=== PATIENT | male | born 1950 | race Caucasian/White ===

== ENCOUNTER 2017-01-22 12:22 | Emergency (ER) | payer MEDICARE ==
--- NOTE | 2017-01-29 13:52 | ER ---
ADMIT: 01/22/2017 RM/LOC: ER [facility] MR#: [id number] [facility] [id number] [place] [address] Emergency Room Report SEX: M AGE: 66 : 1950 DATE: 01/22/2017 ADDENDUM: CHIEF COMPLAINT: G-tube fell out. HISTORY OF PRESENT ILLNESS: This is a 66-year-old, who has a history of [employer]'s, he has a G-tube in place because he cannot swallow. G-tube is replaced here in emergency room, it was confirmed with fluoroscopy. CLINICAL IMPRESSION: G-tube replacement. RAMON Berry / Jaya Marin MD / torrie JOB #: [id number] CC: Jaya Marin MD, Attending Physician
== END 2017-01-22 12:58 | disposition home or self-care (01) ==
LOC: ER 12:22
PROC: 0D20XUZ Change Feeding Device in Upper Intestinal Tract, External Approach (ICD-10-PCS; principal; 2017-01-22)
DX: Z43.1 Encounter for attention to gastrostomy (principal)